=== PATIENT | male | born 1955 | race Caucasian/White ===

== ENCOUNTER → 2019-04-07 | Outpatient (CLI) | payer MEDICARE ==
[~2019-04-07] MED LIST: ASPIRIN81 MG PO; CELEXA20 MG PO; GLIMEPIRIDE2 MG PO; GLYBURIDE5 MG PO; ISOSORBIDE MONO30 MG PO; LAMOTRIGINE200 MG PO; LANSOPRAZOLE15 MG PO; LISINOPRIL10 MG PO; MELOXICAM7.5 MG PO; METFORMIN HCL500 MG PO; METOPROLOL TART25 MG PO; MEVACOR20 MG PO; OMEPRAZOLE20 MG PO; PIOGLITAZONE HC45 MG PO; PLAVIX75 MG PO
--- NOTE | 2019-04-07 15:12 | Diagnostic Imaging Report ---
EXAM: Focused Soft Tissue Ultrasound Evaluation of left calf INDICATION: ^PAIN IN LEFT LEG COMPARISON: None TECHNIQUE: Prakash scale, color Doppler images of the left calf soft tissues in the area of clinical interest were obtained. FINDINGS: Focused sonographic evaluation of the left calf soft tissues posteriorly at the area of clinical interest demonstrates a small amount of fluid interdigitating between planes of subcutaneous fat. Mildly increased associated vascularity in this area. No focal mass or fluid collection. IMPRESSION: Fluid in the subcutaneous fat of the left posterior calf in the area of clinical interest with mild associated increased vascularity in the area. Findings are nonspecific and may represent cellulitis in the proper clinical setting. No focal mass or drainable fluid collection. Signed by: Kwan Hill MD on 04/07/2019 3:08 PM
== END ==
LOC: CARD 13:46
PROVIDERS: ATTEND Family Medicine
DX: M79.605 Pain in left leg (principal); I73.9 Peripheral vascular disease, unspecified
CPT/HCPCS: 76882; 93925; 93970

== ENCOUNTER → 2020-11-01 | Outpatient (CLI) | payer MEDICARE ==
[~2020-11-01] MED LIST changes: +REGADENOSON 0.4 MG/5 ML SYR IV ONE
== END ==
LOC: NM 10:00
PROVIDERS: ATTEND Internal Medicine
DX: R07.9 Chest pain, unspecified (principal); I25.10 Atherosclerotic heart disease of native coronary artery without angina pectoris
CPT/HCPCS: 78452; 93017; 93306; A9502; J2785